=== PATIENT | female | born 1985 | race Caucasian/White ===

== ENCOUNTER 2020-06-11 22:32 | Emergency (ER) | payer SELFPAY ==
[~2020-06-11] VITALS: Ht 162 cm; Wt 108.0 kg
--- NOTE | 2020-06-11 22:57 | ED Lower Extremity ---
General Chief Complaint: Trauma-Non Activation Stated Complaint: FALL Nursing Triage Note: Pt states she fell down her stairs at home and presents with right leg and ankle pain Nursing Sepsis Screen: No Definite Risk Source: patient Exam Limitations: no limitations History of Present Illness Date Seen by Provider: Jun 11, 2020 Time Seen by Provider: 10:50 Initial Comments 35-year-old female presents with right sided lower extremity pain after fall down the steps indoors at her house tonight. Complains of pain primarily in her right hip and her right foot. Is able to bear weight and was ambulatory to the ER. Denies history of broken bone or joint in the past. Denies any other pain or injury. Denies head injury, neck pain or back pain. Allergies and Home Medications Allergies Coded Allergies: codeine (Verified Allergy, Unknown, 06/11/20) Home Medications Hydrocodone/Acetaminophen 1 Each Tablet, 1 EACH PO Q4H Prescribed by: THIEN HERNÁNDEZ on 06/11/202328 Ibuprofen 800 Mg Tablet, 800 MG PO Q8H PRN for PAIN Prescribed by: THIEN HERNÁNDEZ on 06/11/202328 Patient Home Medication List Home Medication List Reviewed: Yes Review of Systems Constitutional: no symptoms reported EENTM: no symptoms reported Respiratory: No cough, No short of breath Cardiovascular: No chest pain, No edema, No palpitations Gastrointestinal: No abdominal pain, No nausea, No vomiting Musculoskeletal: see HPI; No back pain; joint pain; No joint swelling, No neck pain Skin: No change in color, No lesions, No lumps, No rash Psychiatric/Neurological: Denies Numbness, Denies Paresthesia, Denies Tingling, Denies Tremors, Denies Weakness Past Gfeuxkw-Rycsxp-Jpommf Hx Past Med/Social Hx: Reviewed Nursing Past Med/Soc Hx Patient Social History Alcohol Use: Denies Use Recreational Drug Use: No Smoking Status: Current Everyday Smoker Type Used: Cigarettes Recent Foreign Travel: No Contact w/Someone Who Travel: No Recent Infectious Disease Expo: No Recent Hopitalizations: No Physical Abuse: No Sexual Abuse: No Past Medical History Surgeries: No Respiratory: No Cardiac: No Neurological: No Genitourinary: No Gastrointestinal: No Musculoskeletal: No Endocrine: No HEENT: No Cancer: No Psychosocial: No Integumentary: No Blood Disorders: No Physical Exam Vital Signs Vital Signs - First Documented 06/11/20 22:40 Temp 37.3 Pulse 97 Resp 18 B/P (MAP) 140/72 (94) Pulse Ox 99 O2 Delivery Room Air Capillary Refill : Less Than 3 Seconds Height, Weight, BMI Height: '" Weight: lbs. oz. kg; 41.00 BMI Method: General Appearance: WD/WN, no apparent distress HEENT: PERRL/EOMI, normal ENT inspection Neck: non-tender, full range of motion, supple, normal inspection Back: normal inspection, no CVA tenderness, no vertebral tenderness Hips: left hip non-tender, left hip normal inspection, left hip normal range of motion, left hip no evidence of injury; right hip bone tenderness, right hip limited range of motion, right hip pain, right hip soft tissue tenderness Legs: bilateral leg non-tender, bilateral leg normal inspection, bilateral leg normal range of motion, bilateral leg no evidence of injury Knees: bilateral knee non-tender, bilateral knee normal inspection, bilateral knee normal range of motion, bilateral knee no evidence of injury Ankles: bilateral ankle non-tender, bilateral ankle normal inspection, bilateral ankle normal range of motion, bilateral ankle no evidence of injury Feet: right foot normal inspection, right foot bone tenderness (generalized mid-foot) Neurologic/Tendon: normal sensation, normal motor functions, normal tendon functions, responds to pain Neurologic/Psychiatric: no motor/sensory deficits, alert, normal mood/affect Progress/Results/Core Measures Results/Orders My Orders Orders - THIEN HERNÁNDEZ DO Foot 3 View Right (06/11/20 22:50) Pelvis With Right Hip 2-3 View (06/11/20 22:50) Crutches (06/11/20 23:21) Coolway Splint (06/11/20 23:21) Vital Signs/I&O 06/11/20 22:40 Temp 37.3 Pulse 97 Resp 18 B/P (MAP) 140/72 (94) Pulse Ox 99 O2 Delivery Room Air Blood Pressure Mean: 94 Progress Progress Note : Progress Note Discussed conservative Mgmt for foot fracture and avoiding wt bearing on R foot until cleared by Ortho. Diagnostic Imaging Diagonstic Imaging: Xray Plain Films/CT/US/NM/MRI: hip (and right foot) Comments Normal pelvis and R hip suspect proximal MT fractures 2-4th (area of tenderness and RAD findings supportive). Reviewed: Reviewed by Me Departure Impression Primary Impression: Fall (on) (from) other stairs and steps, initial encounter Additional Impressions: Fracture of foot bone, right, closed Contusion of hip, right Disposition: 01 HOME, SELF-CARE Condition: Stable Departure-Patient Inst. Decision time for Depature: 23:30 Referrals: NO,LOCAL PHYSICIAN (PCP) Primary Care Physician PRASHANTH HARDIN MD Patient Instructions: Foot Fracture (DC) Add. Discharge Instructions: Follow up with Ortho in 1 week. Do not put any weight on your R foot (until allowed to by Ortho Doctor). Elevate and apply ice to keep swelling down. All discharge instructions reviewed with patient and/or family. Voiced understanding. Scripts Ibuprofen (Ibuprofen) 800 Mg Tablet 800 MG PO Q8H PRN for PAIN, #30 TAB 0 Refills Prov: THIEN HERNÁNDEZ DO 06/11/20 Hydrocodone/Acetaminophen (Hydrocodone-Acetamin 5-325 mg) 1 Each Tablet 1 EACH PO Q4H for Abdominal Pain, #12 TAB Prov: THIEN HERNÁNDEZ DO 06/11/20 Work/School Note: Work Release Form Date Seen in the Emergency Department: Jun 11, 2020 Return to Work: Jun 13, 2020 Other Restrictions Listed Below: NoN-weight bearing R foot, until cleared by Ortho doctor. THIEN HERNÁNDEZ DO Jun 11, 2020 22:57
[2020-06-11] MEDS ORDERED: IBUP-1780 PO (23:29)
[2020-06-11] MEDS ORDERED: ACHD5005 PO (23:29)
[2020-06-11 23:45] VITALS: BP 140/72
--- NOTE | 2020-06-12 06:44 | Diagnostic Imaging Report ---
Indication: Right hip injury from a fall AP view pelvis and lateral view of the right hip are obtained There is no fracture, dislocation or other acute abnormality seen. IMPRESSION: Negative pelvis and right hip Dictated by: Dictated on workstation # [id number]
--- NOTE | 2020-06-12 07:35 | Diagnostic Imaging Report ---
Indication: Fall with right foot pain. Comparison: None. Discussion: Three views of the right foot were obtained. No fracture or dislocation. Alignment is anatomic. Joint spaces are maintained. Soft tissues are unremarkable. No foreign body. Small calcaneal enthesophytes are incidentally noted. Impression: 1. Negative right foot. Dictated by: Dictated on workstation # [id number]
== END 2020-06-11 23:45 | disposition home or self-care (01) ==
LOC: ER FS 22:37
DX: S92.811A Other fracture of right foot, initial encounter for closed fracture (principal); S70.01XA Contusion of right hip, initial encounter; F17.210 Nicotine dependence, cigarettes, uncomplicated; Z88.5 Allergy status to narcotic agent; W10.9XXA Fall (on) (from) unspecified stairs and steps, initial encounter
CPT/HCPCS: 29515; 73502; 73630